=== PATIENT | male | born 1990 | race Caucasian/White ===

== ENCOUNTER → 2020-08-16 | Outpatient (CLI) | payer BC | LOC: ZCOL.LAB 17:08 | DX: Z20.828 Contact with and (suspected) exposure to other viral communicable diseases (principal) ==

== ENCOUNTER 2021-05-04 11:15 | Outpatient (RCR) | payer BC | END 2021-05-11 10:57 | disposition home or self-care (01) | LOC: MKS.ESL.PT 11:15 | DX: M54.5 Low back pain (principal) ==